=== PATIENT | male | born 1935 | race Two or more races ===

== ENCOUNTER 2020-11-14 12:20 | Outpatient (CLI) | payer MEDICARE, OTHER ==
[2020-11-14] MEDS ORDERED: COLLAGENASE 5 GM TUBE UD TP ONE (13:11)
== END 2020-11-14 23:59 | disposition home health service (06) ==
LOC: WOU 12:20
PROVIDERS: ATTEND Specialist
DX: I87.311 Chronic venous hypertension (idiopathic) with ulcer of right lower extremity (principal); L97.828 Non-pressure chronic ulcer of other part of left lower leg with other specified severity; I87.2 Venous insufficiency (chronic) (peripheral); I50.20 Unspecified systolic (congestive) heart failure; Z99.81 Dependence on supplemental oxygen; Z79.82 Long term (current) use of aspirin
CPT/HCPCS: G0463